=== PATIENT | female | born 1990 | race Caucasian/White ===

== ENCOUNTER 2020-03-01 20:47 | Emergency (ER) | payer OTHER ==
[2020-03-01] MEDS ORDERED: RINGERS SOLUTION,LACTATED 1,000 ML IV ONE (21:28)
[2020-03-01] MEDS ORDERED: KETOROLAC TROMETHAMINE INJ/PF 30 MG/1 ML SDV IV ONE (21:28)
[2020-03-01] MEDS ORDERED: METOCLOPRAMIDE HCL INJ/PF 10 MG/2 ML SDV IV ONE (21:28)
--- NOTE | 2020-03-01 21:30 | ER Document Report ---
ED Medical Screen (RME) - General Chief Complaint: High Blood Pressure Stated Complaint: HEADACHE/SORTNESS OF BREATH/NAUSEA/DIZZINESS Time Seen by Provider: 03/01/20 21:21 Mode of Arrival: Ambulatory Information source: Patient Notes: HPI; 30-year-old female presents to the emergency room complaining of dizziness, headache, shortness of breath, chest pressure for the past 2 days. Also states her blood pressure was elevated at home of 178/123. Has been taking her blood pressure medications as prescribed. States her headache is similar to previous migraines. Is not on any migraine medicine. States it is on the left side of her head. She denies any head trauma. Denies sudden thunderclap. Not worst headache of her life. Complains of nausea but no vomiting, no photophobia. PE: Oriented x3. Mild distress noted. PERRLA, EOMI lungs: Clear to auscultation without rales, rhonchi, wheezes. Heart: Regular rate rhythm without murmurs, rubs, gallops. I have greeted and performed a rapid initial assessment of this patient. A comprehensive ED assessment and evaluation of the patient, analysis of test results and completion of the medical decision making process will be conducted by additional ED providers. I have specifically instructed the patient or family members with the patient to immediately return to any nursing staff should anything change in the patient's condition or with their chief complaint. TRAVEL OUTSIDE OF THE [place] IN LAST 30 DAYS: No - Related Data Allergies/Adverse Reactions: No Known Allergies Allergy (Unverified 03/01/20 21:14) Home Medications: LABETALOL Past Medical History - Social History Frequency of alcohol use: None Drug Abuse: None Physical Exam - Vital signs Vitals: Temp Pulse Resp BP Pulse Ox 98.5 F 73 17 145/92 H 99 03/01/20 20:58 03/01/20 20:58 03/01/20 20:58 03/01/20 20:58 03/01/20 20:58 Course - Vital Signs Vital signs: Temp Pulse Resp BP Pulse Ox 98.5 F 73 17 145/92 H 99 03/01/20 20:58 03/01/20 20:58 03/01/20 20:58 03/01/20 20:58 03/01/20 20:58
--- NOTE | 2020-03-01 22:04 | EKG REPORT ---
SEVERITY:- BORDERLINE ECG - SINUS RHYTHM INFERIOR Q WAVES, PROBABLY NORMAL VARIATION : Confirmed by: Mina Devlin 01-Mar-2020 22:03:41
--- NOTE | 2020-03-01 22:21 | RADIOLOGY REPORT (SQ) ---
EXAM DESCRIPTION: XR CHEST 1 VIEW COMPLETED DATE/TME: 03/01/2020 21:26 CLINICAL HISTORY: 30 years, Female, chest pain EXAM DESCRIPTION: CLINICAL HISTORY: chest pain COMPARISON: None. FINDINGS: Single view of the chest is submitted. Cardiac silhouette is normal. No focal parenchymal or pleural disease. No acute bony abnormality. There is no significant pulmonary vascular engorgement. IMPRESSION: No evidence of acute cardiopulmonary disease.
[2020-03-01 23:46] LABS: ABSOLUTE BASOPHILS # (AUTO) 0.1 10^3/uL (0.0-0.2); ABSOLUTE EOSINOPHILS # (AUTO) 1.3 10^3/uL (0.0-0.6); ABSOLUTE LYMPHOCYTES (AUTO) 3.3 10^3/uL (0.5-4.7); ABSOLUTE MONOCYTES (AUTO) 0.7 10^3/uL (0.1-1.4); ABSOLUTE NEUT (AUTO) 8.2 10^3/uL (1.7-8.2); BASOPHILS % (AUTO) 0.4 % (0-2); EOSINOPHILS % (AUTO) 9.3 % (0-6); HEMATOCRIT 34.9 % (36.0-47.0); HEMOGLOBIN 12.1 g/dL (12.0-15.5); LYMPHOCYTES % (AUTO) 24.2 % (13-45); MEAN CORPUSCULAR HEMOGLOBIN 30.7 pg (27.0-33.4); MEAN CORPUSCULAR HGB CONC 34.7 g/dL (32.0-36.0); MEAN CORPUSCULAR VOLUME 89 fl (80-97); MONOCYTES % (AUTO) 5.5 % (3-13); PLATELET COUNT 328 10^3/uL (150-450); RED BLOOD COUNT 3.94 10^6/uL (3.72-5.28); RED CELL DISTRIBUTION WIDTH 12.9 % (11.5-14.0); SEGMENTED NEUTROPHILS % (AUTO) 60.6 % (42-78); TOTAL CELLS COUNTED % (AUTO) 100 %; WHITE BLOOD COUNT 13.6 10^3/uL (4.0-10.5)
[2020-03-02 00:05] LABS: ALBUMIN 4.5 g/dL (3.5-5.0); ALKALINE PHOSPHATASE 50 U/L (38-126); ANION GAP 10 (5-19); ASPARTATE AMINO TRANSFERASE 21 U/L (14-36); BILIRUBIN,DIRECT 0.3 mg/dL (0.0-0.4); BILIRUBIN,TOTAL 0.4 mg/dL (0.2-1.3); BLOOD UREA NITROGEN 16 mg/dL (7-20); CARBON DIOXIDE 22 mmol/L (22-30); CHLORIDE 106 mmol/L (98-107); GLUCOSE 85 mg/dL (75-110); POTASSIUM 3.9 mmol/L (3.6-5.0); TOTAL PROTEIN 7.2 g/dL (6.3-8.2)
[2020-03-02] MEDS ORDERED: METOCLOPRAMIDE HCL INJ/PF 10 MG/2 ML SDV ONE (02:53)
[2020-03-02] MEDS ORDERED: KETOROLAC TROMETHAMINE INJ/PF 30 MG/1 ML SDV ONE (02:53)
[2020-03-02] MEDS ORDERED: LISINOPRIL 10 MG TABLET PO ONE (03:23)
--- NOTE | 2020-03-02 04:44 | ER Document Report ---
ED Blood Pressure Problem - General Chief Complaint: High Blood Pressure Stated Complaint: HEADACHE/SORTNESS OF BREATH/NAUSEA/DIZZINESS Time Seen by Provider: 03/01/20 21:21 Primary Care Provider: RODRÍGUEZ FIORE MD [COMMUNITY BASED STAFF] - Follow up as needed Mode of Arrival: Ambulatory Information source: Patient Notes: 30-year-old female patient with history of hypertension presenting to the emergency department with increased blood pressures, headaches and generalized malaise. Patient reports she was on lisinopril 10 mg however this was stopped when she was attempting to get . They changed her medications to a medication that would be safe during . She states this medication has never really worked and she continues to have elevated blood pressures. She is no longer and is not trying to get . She denies any chest pain or shortness of breath. TRAVEL OUTSIDE OF THE [place] IN LAST 30 DAYS: No - Related Data Allergies/Adverse Reactions: No Known Allergies Allergy (Unverified 03/01/20 21:14) Home Medications: LABETALOL Past Medical History - General Information source: Patient - Social History Smoking Status: Former Smoker Frequency of alcohol use: None Drug Abuse: None Family History: Reviewed & Not Pertinent - Past Medical History Cardiac Medical History: Reports: Hx Hypertension Review of Systems - Review of Systems Constitutional: Malaise Cardiovascular: Other - elevated BP -: Yes All other systems reviewed and negative Physical Exam - Vital signs Vitals: Temp Pulse Resp BP Pulse Ox 98.5 F 73 17 145/92 H 99 03/01/20 20:58 03/01/20 20:58 03/01/20 20:58 03/01/20 20:58 03/01/20 20:58 - Notes Notes: PHYSICAL EXAMINATION: GENERAL: Well-appearing, well-nourished and in no acute distress. HEAD: Atraumatic, normocephalic. EYES: Pupils equal round and reactive to light, extraocular movements intact, conjunctiva are normal. ENT: Nares patent, oropharynx clear without exudates. Moist mucous membranes. NECK: Normal range of motion, supple without lymphadenopathy LUNGS: Breath sounds clear to auscultation bilaterally and equal. No wheezes rales or rhonchi. HEART: Regular rate and rhythm without murmurs ABDOMEN: Soft, nontender, nondistended abdomen. No guarding, no rebound. No masses appreciated. Female : deferred Musculoskeletal: Normal range of motion, no pitting or edema. No cyanosis. NEUROLOGICAL: Cranial nerves grossly intact. Normal speech, normal gait. Normal sensory, motor exams PSYCH: Normal mood, normal affect. SKIN: Warm, Dry, normal turgor, no rashes or lesions noted. Course - Re-evaluation Re-evalutation: Patient's work-up today has been reassuring. We will change her back to her lisinopril. She was told to stop taking her atenolol. I have given her a referral to a primary care provider as she does not currently have one. She was provided with a 30-day prescription for her antihypertensives. ED return precautions were discussed. - Vital Signs Vital signs: Temp Pulse Resp BP Pulse Ox 98.5 F 73 25 H 159/99 H 99 03/01/20 20:58 03/01/20 20:58 03/02/20 04:49 03/02/20 04:49 03/02/20 04:49 - Laboratory Result Diagrams: 03/01/20 23:32 03/01/20 23:32 Laboratory results interpreted by me: 03/01/20 23:32 WBC 13.6 H Hct 34.9 L Eos % (Auto) 9.3 H Absolute Eos (auto) 1.3 H - Diagnostic Test Radiology reviewed: Image reviewed, Reports reviewed - EKG Interpretation by Ri EKG shows normal: Sinus rhythm - Rate of 68, normal axis, normal intervals, no ST segment elevations or depressions to suggest ischemia. Discharge - Discharge Clinical Impression: Hypertension Qualifiers: Hypertension type: unspecified Qualified Code(s): I10 - Essential (primary) hypertension Condition: Stable Disposition: HOME, SELF-CARE Additional Instructions: Please take blood pressure medication as prescribed. Please stop the labetalol. Please establish care with a primary care provider. I have given you the phone number of [phone] in the local area who is wonderful. Return to the emergency department any new or worsening symptoms. Prescriptions: Lisinopril [Prinivil 10 mg Tablet] 10 mg PO DAILY #30 tablet Referrals: RODRÍGUEZ FIORE MD [COMMUNITY BASED STAFF] - Follow up as needed
[2020-03-02 04:54] VITALS: BP 159/99
== END 2020-03-02 04:54 | disposition home or self-care (01) ==
LOC: ER 20:47
DX: I10 Essential (primary) hypertension (principal); R51.9 Headache, unspecified; R53.81 Other malaise; Z79.899 Other long term (current) drug therapy; Z87.891 Personal history of nicotine dependence
CPT/HCPCS: 93005; 99285; 96361; 96374; 96375; 36415; 84703; 85025; 80053; 84484; 71045; 93010; J1885; J2765; J7120